=== PATIENT | female | born 1975 | race Caucasian/White ===

== ENCOUNTER → 2020-01-27 14:28 | Outpatient (CLI) | payer OTHER, SELFPAY ==
--- NOTE | ~2020-01-27 | MM_ITS ---
EXAMINATION: MM screening jessica BI w mary HISTORY: Screening TECHNIQUE: Craniocaudal and mediolateral oblique 3-D tomosynthesis images were obtained and synthetic 2-D images were generated. CAD analysis was submitted and interpreted. COMPARISON: Comparison to multiple prior studies sequentially, with oldest reviewed study dated 04/20. BREAST PARENCHYMAL COMPOSITION: The breasts are heterogenously dense, which may obscure small masses. FINDINGS: There is no evidence of suspicious mass, calcification, or architectural distortion to sugg est malignancy in either breast. There has been no suspicious interval change. IMPRESSION: 1. No mammographic evidence of malignancy. 2. Recommend routine screening mammography in one year. BI-RADS Category 1: Negative Reviewed, dictated and finalized at location A.
== END ==
PROVIDERS: Visit Provider Obstetrics & Gynecology
DX: Z12.31 Encounter for screening mammogram for malignant neoplasm of breast (principal)
CPT/HCPCS: 77063; 77067

== ENCOUNTER 2020-03-04 15:01 | Emergency (ER) | payer OTHER, SELFPAY ==
--- NOTE | ~2020-03-04 | XR_ITS ---
EXAMINATION: XR finger 4th LT min 2V INDICATION: Left fourth finger pain TECHNIQUE: Four views of the left fourth finger are obtained. COMPARISON: None available FINDINGS: There is an acute, traumatic, closed, oblique, intra-articular fracture at the dorsal base of the fifth fourth distal phalanx. The fracture involves greater than 50% of the articular surface. Soft tissue swelling surrounds the fracture. There is slight extension at the fourth interphalangeal joint and flexion at the distal interphalangeal joint. IMPRESSION: 1. Intra-articular fracture at the dorsal base of the fourth phalanx involving greater than 50% of th e articular surface. Orthopedic evaluation is recommended. Reviewed, dictated and finalized at location A. IMPRESSION: 1. Intra-articular fracture at the dorsal base of the fourth phalanx involving greater than 50% of the articular surface. Orthopedic evaluation is recommended .
[2020-03-04 15:11] VITALS: BP 159/109; PULSE 73; RESP 16; TEMP 36.8; O2SAT 100
--- NOTE | 2020-03-04 15:43 | ED.UPPEXIN ---
HPI - Extremity Injury (Upper) General Chief Complaint: Extremity Injury, Upper Stated Complaint: lt hand pinkie finger injury Time Seen by Provider: 03/04/20 15:20 Source: patient and RN notes reviewed Mode of arrival: ambulatory Limitations: no limitations History of Present Illness HPI narrative: 44 year old female who presents to [facility] with complaints of injury to her left 4th distal finger on the 26 of February. She states that she was playing volleyball with her daughter and was hit in the left ring finger by the volleyball. 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 She called Dr Mclean's offices and has an appointment with him on Saturday but he wants her to be seen and x-rayed at clinic today.Patient has been using ice intermittently and then she taped her finger together for a couple of days but no resolution in pain or swelling and is unable to move distal aspect of her 4th left finger. MD complaint: injury to: left and finger (ring finger) Onset (ago): day(s) (02/27/2020) Other Extremity Injury: Left: fingers ([id number] finger) Other injuries: none Handedness: right Place: home Severity: moderate Severity scale (1-10): 5 Relieving factors: cold therapy and rest Exacerbating factors: movement of extremity Context: direct blow Associated symptoms: denies other symptoms Treatments prior to arrival: cold therapy and other (kenia taped) Related Data Home Medications Medication Instructions Recorded Confirmed No Home Medications 03/04/20 03/04/20 Allergies Allergy/AdvReac Type Severity Reaction Status Date / Time No Known Allergies Allergy Mild Verified 03/04/20 15:16 Review of Systems Review of Systems: Narrative: CONSTITUTIONAL: Denies fever, chills, or sweats. EYES: Denies visual changes, redness, or discharge. ENT: Denies rhinorrhea, congestion, sore throat, or otalgia. CARDIOVASCULAR: Denies chest pain, palpitations, or edema. RESPIRATORY: Denies cough or dyspnea. GASTROINTESTINAL: Denies abdominal pain, nausea, vomiting, or diarrhea. GENITOURINARY: Denies dysuria or hematuria. SKIN: Denies rash or itching. MUSCULOSKELETAL: Denies back pain, positive for pain to distal left 4th finger DIP joint area or myalgia. NEUROLOGIC: Denies headache, numbness, or weakness. PSYCHIATRIC: Denies anxiety or depression. [facility] Past Medical History Medical History (Updated 03/05/20 @ 14:36 by Maria Antonia Carlton NP) induced hypertension Surgical History Surgical History (Updated 03/05/20 @ 14:37 by Maria Antonia Carlton NP) History of wisdom tooth extraction, class IV edentulism Family History Family History Grandparent Family history of Alzheimer's disease, Onset Age: 87 Family history unknown, Onset Age: 82 Family history of lung cancer, Onset Age: 74 Family history of congestive heart failure, Onset Age: 71 Mother Family history of malignant neoplasm of breast Father Family history of malignant neoplasm of urinary bladder Family history of malignant neoplasm of kidney Social History Social History (Updated 03/05/20 @ 14:36 by Maria Antonia Carlton NP) Smoking status: Never smoker Second hand tobacco smoke exposure: No Alcohol intake: current Living arrangements: with family Additional occupation/education comments: dentist Gender identity (if verbalized by the patient): Female Comments At time of signature, agree with nursing past medical, surgical, social and family history. There is no relevant family history pertinent to the presenting complaint Exam Narrative: Exam Narrative: GENERAL: Well-appearing, well-nourished, and in no acute distress. HEAD: Normocephalic, atraumatic. EYES: PERRLA and EOMI. ENT: Nares clear, no rhinorrhea or epistaxis. Mucous membranes moist. NECK: Supple. CHEST: Clear to a
[2020-03-04 16:01] VITALS: BP 151/105; PULSE 71
== END 2020-03-04 16:07 | disposition home or self-care (01) ==
PROVIDERS: Emergency Provider Registered Nurse
DX: S62.635A Displaced fracture of distal phalanx of left ring finger, initial encounter for closed fracture (principal); W21.06XA Struck by volleyball, initial encounter
CPT/HCPCS: 29130; 73140; 99214; G0463

== ENCOUNTER 2020-03-08 01:32 | Outpatient (CLI) | payer OTHER, SELFPAY ==
[2020-03-08 19:02] LABS: SARS-CoV-2 RNA PCR Negative
== END 2020-03-08 01:33 | disposition home or self-care (01) ==
LOC: ANHCOVIDDT 01:32
PROVIDERS: Visit Provider Plastic Surgery
DX: Z01.812 Encounter for preprocedural laboratory examination (principal); Z20.828 Contact with and (suspected) exposure to other viral communicable diseases
CPT/HCPCS: 87635; C9803; U0003

== ENCOUNTER 2020-03-10 01:09 | Day surgery (SDC) | payer OTHER, SELFPAY ==
[2020-03-07 12:56] VITALS: BMI 23.3
--- NOTE | ~2020-03-10 | XR_ITS ---
EXAMINATION: XR surgery orthopedic DATE: 03/10/2020 11:34 INDICATION: ORIF left ring finger fracture TECHNIQUE: 3 fluoroscopic spot images of the right fourth digit were obtained during procedure perfor med by Dr. Mclean. Radiologist was not present for the imaging or procedure. The amount of fluoroscopy time used during this procedure was 2.8 minutes. COMPARISON: 03/04/2020 FINDINGS: Interval reduction to near anatomic alignment of the previously distracted avulsion fractur e involving the dorsal half of the base of the left fourth distal phalanx. The fractures fixed with a dorsal to the palmar directed percutaneous wire as well as a longer axially directed wire extending from the tuft of the distal phalanx across the distal interphalangeal joint and through the middle ph alanx to near the base. The profiled joint spaces are normal. IMPRESSION: 1. Near-anatomic alignment post reduction and wire fixation of an intra-articular fracture at the delmar maryann base of the left fourth distal phalanx. See procedure note for further detail. Reviewed, dictated and finalized at location A. IMPRESSION: 1. Near-anatomic alignment post reduction and wire fixation of an intra-articul ar fracture at the dorsal base of the left fourth distal phalanx. See procedure note for further detail.
--- NOTE | 2020-03-10 07:09 | WPDHPUPDATE1 ---
History and Physical Update Update Date/Time: 03/10/20 07:09 History and Physical has been reviewed, including an updated exam of the patient. There are NO changes in the patient's condition. Risks, benefits, and alternatives have been discussed and questions answered. Patient agrees to proceed with procedure.
[2020-03-10 09:16] VITALS: BP 147/98; PULSE 70; RESP 18; TEMP 36.7; O2SAT 100
[2020-03-10] MEDS: LACTATED RINGERS 1,000 ML 30 ML IV CONT ×2 (09:30→11:17)
--- NOTE | 2020-03-10 09:38 | WPDANESEPPF ---
Anes - Initial Pre Proc Eval Procedure: Operation Date: 03/10/20 11:00 Proposed Procedures p Closed Reduction, Possible Open Internal Fixation Of Left Ring Finger - Mele Mclean MD Date/Time: 03/10/20 09:38 Surgeon: Mele Mclean MD Pre Op Diagnosis: Closed Displaced fx Left Ring Finger Distal Phal Patient Data Age: 44 Gender: F Height: 5 ft 5 in Weight: 63.5 kg Allergies Allergy/AdvReac Type Severity Reaction Status Date / Time No Known Allergies Allergy Mild Verified 03/07/20 12:56 Home Medications Medication Instructions Recorded Confirmed Type No Home Medications 03/04/20 03/07/20 History Patient hx anesthesia problems: none Family hx anesthesia problems: none PMFSH Past Medical History Medical History (Updated 03/05/20 @ 14:36 by Maria Antonia Carlton NP) induced hypertension Surgical History Surgical History (Updated 03/05/20 @ 14:37 by Maria Antonia Carlton NP) History of wisdom tooth extraction, class IV edentulism Family History Family History Grandparent Family history of Alzheimer's disease, Onset Age: 87 Family history unknown, Onset Age: 82 Family history of lung cancer, Onset Age: 74 Family history of congestive heart failure, Onset Age: 71 Mother Family history of malignant neoplasm of breast Father Family history of malignant neoplasm of urinary bladder Family history of malignant neoplasm of kidney Social History Social History (Updated 03/05/20 @ 14:36 by Maria Antonia Carlton NP) Smoking status: Never smoker Second hand tobacco smoke exposure: No Alcohol intake: current Drinks per week: 2 Additional occupation/education comments: dentist Gender identity (if verbalized by the patient): Female Spiritual care concerns: No Anes - Eval Final PreProcedure Day of Procedure 03/10/20 09:38 Patient weight: normal Heart: regular rate and rhythm Lungs: clear to auscultation Airway: Mallampati scale class II Neurological: alert and oriented Last oral intake: >/= 8 hours ASA classification: II Emergent: no Anesthetic plan: proceed Anesthesia type and monitoring: general GIVS and standard monitoring Informed Consent: The patient's anesthetic plan and its attendant risks and benefits were discussed with the patient/family/POA. Questions were solicited and answers provided to the satisfaction of the patient/family/POA.
[2020-03-10] MEDS: ceFAZolin 2 GM/D5W 50 ML 2 GM/50 ML BAG IVPB (09:47)
[2020-03-10] MEDS: LIDO 1%/EPINEPHRINE 1:100,000 20 ML VIAL INFILTRATE (10:19)
[2020-03-10] MEDS: BUPIVACAINE HCL 0.5% PF 30 ML VIAL INFILTRATE (11:09)
[2020-03-10 11:17] VITALS: BP 121/75; PULSE 85; RESP 18; O2SAT 97
[2020-03-10 11:45] VITALS: BP 119/76; PULSE 66
--- NOTE | 2020-03-10 11:53 | P.OPB_ITS ---
Procedure Note - Brief Procedure Note - Brief Date of procedure: 03/10/20 Pre-op diagnosis: Closed Displaced fx Left Ring Finger Distal Phal Post-op diagnosis: same Procedure performed: ORIF of displaced fracture of distal phalanx left ring finger. Implants: C-wire: 0.028 inch and 0.035. Anesthesia: MAC Surgeon: Mele Mclean MD Associate Professor Of Geology: Carrol Landeros Estimated blood loss (mL): 2 Tourniquet time (min): 45 Drains: No Packing: No Pathology: none sent Complications: No immediate complications Condition: critical Disposition: same day
[2020-03-10 12:00] VITALS: BP 125/87; PULSE 58
--- NOTE | 2020-03-10 14:12 | P.OP_ITS ---
Procedure Note - Detailed Date of procedure: 03/10/20 Pre-op diagnosis: Closed Displaced fx Left Ring Finger Distal Phal Post-op diagnosis: same Procedure performed: Open reduction and internal C-wire fixation of a displaced closed fracture of the left ring finger distal phalanx. Description of procedure: The patient's appropriate finger was marked in the holding area. She was taken to the operating room and placed supine on operating table and a time-out was held and confirmed. She was given sedation anesthesia and the digit was blocked with 1% lidocaine with epinephrine. The hand was prepped and draped in usual fashion. A tourniquet was rolled onto the finger. C-arm images were made. The Y-shaped dorsal incision was made over the distal interphalangeal joint. Skin flaps were very carefully elevated . The lesser fragment was noted to be fried the attached to the terminal tendon and appeared to be intact. The fracture site was confirmed with placement of a 25 gauge needle inserted into the gap and imaged. A 0.028 C wire was placed at the dorsal base of the fragment and inserted into the fragment. The distal phalanx was extended. A 0.035 in C wire was driven retrograde from the tip through a small incision down the length of the phalanx and across the distal interphalangeal joint to the base of the middle phalanx under C-arm guidance. The minor fracture fragment was then guided into the defect with the C-wire. The wire was driven through the base of the distal phalanx and cut short above the terminal tendon. The very satisfactory reduction and fixation was achieved. The pins were cut beneath the skin level and the skin closed with interrupted and running 5 0 nylon sutures. A small bandage with volar aluminum splint to the proximal interphalangeal joint was applied. The tournicots were removed ambika or to skin closure. Five milliliter of 0.5% Marcaine were injected as an intrathecal block. The patient had been given 2 g of Ancef preop. She was discharged home with instructions in wound care and follow-up. She has a prescription for hydrocodone number [id number] Surgeon: Mele Mclean MD
== END 2020-03-10 12:20 | disposition home or self-care (01) ==
PROVIDERS: PCP Family Medicine; Visit Provider Plastic Surgery
PROC: (CPT 26765; principal; 2020-03-10 11:00)
DX: S62.635A Displaced fracture of distal phalanx of left ring finger, initial encounter for closed fracture (principal); W21.06XA Struck by volleyball, initial encounter; Y93.68 Activity, volleyball (beach) (court)
CPT/HCPCS: 26765; A9270; C1713; J0690; J2250; J2704; J3010; J7120

== ENCOUNTER 2020-04-25 09:25 | Outpatient (NON) | payer OTHER, SELFPAY ==
[2020-04-25 18:53] LABS: SARS-CoV-2 RNA PCR Positive
== END 2020-04-25 09:26 ==
LOC: ANHCOVIDDT 09:27
PROVIDERS: Visit Provider Obstetrics & Gynecology
DX: U07.1 COVID-19 (principal)
CPT/HCPCS: 87635; C9803; U0003

== ENCOUNTER → 2021-07-11 15:37 | Outpatient (CLI) | payer OTHER, SELFPAY ==
--- NOTE | ~2021-07-11 | MM_ITS ---
EXAMINATION: MM screening jessica BI w mary HISTORY: Screening mammogram TECHNIQUE: Craniocaudal and mediolateral oblique 3-D tomosynthesis images were obtained and synthetic 2-D images were generated. CAD analysis was submitted and interpreted. COMPARISON: 01/27/2020, 05/03/2018, 11/27/2016 bilateral screening mammogram examinations BREAST PARENCHYMAL COMPOSITION: The breasts are heterogeneously dense, which may obscure small masses . FINDINGS: Stable circumscribed approximately 4.6 x 7.4 mm opacity in the posterior mid inner left giovani ast. There is no evidence of suspicious mass, calcification, or architectural distortion to suggest m alignancy in either breast. There has been no suspicious interval change. IMPRESSION: 1. No mammographic evidence of malignancy. 2. Recommend routine screening mammography in one year. BI-RADS Category 2: Benign finding(s). Reviewed, dictated and finalized at location A. INSPECTOR
== END ==
PROVIDERS: PCP Family Medicine; Visit Provider Obstetrics & Gynecology
DX: Z12.31 Encounter for screening mammogram for malignant neoplasm of breast (principal)
CPT/HCPCS: 77063; 77067

== ENCOUNTER → 2022-07-13 08:02 | Outpatient (CLI) | payer OTHER, SELFPAY ==
--- NOTE | ~2022-07-13 | MM_ITS ---
EXAMINATION: MM screening jessica BI w mary HISTORY: Screening mammogram TECHNIQUE: Craniocaudal and mediolateral oblique 3-D tomosynthesis images were obtained and synthetic 2-D images were generated. CAD analysis was submitted and interpreted. COMPARISON: July 11, 2021, January 27, 2020, May 03, 2018 bilateral screening mammogram exa minations BREAST PARENCHYMAL COMPOSITION: The breasts are heterogeneously dense, which may obscure small masses . FINDINGS: Question of possible focal architectural distortion/asymmetry in the posterior outer left b reast on CC projection. Diagnostic left mammogram is recommended, with ultrasound if required. Otherwise there is no evidence of suspicious mass, calcification, or architectural distortion to sugg est malignancy in either breast. There has been no other suspicious interval change. IMPRESSION: 1. Question of possible focal architectural distortion/asymmetry in posterior outer left breast on CC projection. 2. Diagnostic left mammogram is recommended, with ultrasound if required BI-RADS Category 0: Incomplete: Needs additional imaging evaluation. Reviewed, dictated and finalized at location A. DESK ASSISTANT IMPRESSION: 1. Question of possible focal architectural distortion/asymmetry in posterior o uter left breast on CC projection. 2. Diagnostic left mammogram is recommended, with ultrasound if required BI-RADS Category 0: Incomplete: Needs additional imaging evaluation.
== END ==
PROVIDERS: PCP Family Medicine; Visit Provider Obstetrics & Gynecology
DX: Z12.31 Encounter for screening mammogram for malignant neoplasm of breast (principal); R92.8 Other abnormal and inconclusive findings on diagnostic imaging of breast
CPT/HCPCS: 77063; 77067

== ENCOUNTER → 2022-08-07 14:11 | Outpatient (CLI) | payer OTHER, SELFPAY ==
--- NOTE | ~2022-08-07 | MMUS_ITS ---
EXAMINATION: MM diagnostic jessica LT w mary, US breast LT complete HISTORY: Follow-up possible architectural distortion of the left breast. TECHNIQUE: Additional 3-D tomosynthesis images of the left breast were performed and synthetic 2-D im ages were generated. CAD analysis was submitted and interpreted. High resolution complete left breast ultrasound was performed. COMPARISON: Comparison to multiple prior studies sequentially, with oldest reviewed study dated 04/20. BREAST PARENCHYMAL COMPOSITION: The breasts are heterogeneously dense, which may obscure small masses FINDINGS: MAMMOGRAPHIC FINDINGS: There are no suspicious masses, calcifications or architectural distortion in the left breast to sugg est malignancy. ULTRASOUND: Complete US of all 4 quadrants of the left breast and retroareolar region was reviewed. At 2:00, 5 cm from the nipple, there is a 6 mm cyst. At 3:00 near the areola there is a 4 mm cyst. At 6:00, 1 cm f rom the nipple there is a 2 mm cyst. No suspicious masses to suggest malignancy. IMPRESSION: 1. No evidence for malignancy in the left breast. Benign findings. 2. Routine yearly screening mammogram and regular clinical breast examination are recommended. BI-RADS Category 2: Benign finding(s). Reviewed, dictated and finalized at location A. IMPRESSION: 1. No evidence for malignancy in the left breast. Benign findings. 2. Routine yearly screening mammogram and regular clinical breast examination a re recommended. BI-RADS Category 2: Benign finding(s).
== END ==
PROVIDERS: PCP Family Medicine; Visit Provider Obstetrics & Gynecology
DX: R92.8 Other abnormal and inconclusive findings on diagnostic imaging of breast (principal)
CPT/HCPCS: 76641; 77061; 77065; G0279

== ENCOUNTER 2023-01-11 06:37 | Outpatient (RCR) | payer OTHER, SELFPAY ==
--- NOTE | 2022-12-28 10:53 | PC.NURSE ---
RABIES VACCINE AND GLOBULIN ORDERED BY HEALTH DEPARTMENT AFTER POSSIBLE BAT EXPOSURE IN [facility]. THERE WAS NO KNOWN BITE / SITE, RIG GIVEN IM.
== END 2023-03-28 23:59 | disposition home or self-care (01) ==
LOC: ANHVASCINF 06:37
PROVIDERS: PCP Family Medicine; Visit Provider Pediatrics
DX: Z29.14 Encounter for prophylactic rabies immune globulin (principal); Z20.3 Contact with and (suspected) exposure to rabies
CPT/HCPCS: 90471; 90675; 90375

== ENCOUNTER 2023-11-06 14:54 | Outpatient (CLI) | payer OTHER, SELFPAY ==
--- NOTE | ~2023-11-06 | MM_ITS ---
EXAMINATION: MM screening jessica BI w mary HISTORY: Screening TECHNIQUE: Craniocaudal and mediolateral oblique 3-D tomosynthesis images were obtained and synthetic 2-D images were generated. CAD analysis was submitted and interpreted. COMPARISON: Comparison to multiple prior studies sequentially, with oldest reviewed study dated 11/27 . BREAST PARENCHYMAL COMPOSITION: Dense: The breasts are heterogeneously dense, which may obscure small masses FINDINGS: There are developing nodular asymmetries in the outer aspect of the right breast on CC view . The left breast is stable without evidence for malignancy. IMPRESSION: 1. Developing nodular right breast asymmetries. 2. Additional mammographic views and possible breast ultrasound are recommended. BI-RADS Category 0: Incomplete: Needs additional imaging evaluation. Reviewed, dictated and finalized at location B. IMPRESSION: 1. Developing nodular right breast asymmetries. 2. Additional mammographic views and possible breast ultrasound are recommended . BI-RADS Category 0: Incomplete: Needs additional imaging evaluation.
== END 2023-11-06 14:55 ==
LOC: MICIMG 14:55
PROVIDERS: PCP Family Medicine; Visit Provider Obstetrics & Gynecology
DX: Z12.31 Encounter for screening mammogram for malignant neoplasm of breast (principal); N64.89 Other specified disorders of breast
CPT/HCPCS: 77063; 77067

== ENCOUNTER 2023-12-05 08:27 | Outpatient (CLI) | payer OTHER, SELFPAY ==
--- NOTE | ~2023-12-05 | MMUS_ITS ---
EXAMINATION: MM diagnostic jessica RT w mary, US breast RT limited HISTORY: Nodular asymmetry outer right breast TECHNIQUE: Additional 3-D tomosynthesis images of the right breast were performed and synthetic 2-D i mages were generated. CAD analysis was submitted and interpreted. High resolution limited right breas t ultrasound was performed. COMPARISON: 11/06/2023, 07/13/2022, 07/11/2021 BREAST PARENCHYMAL COMPOSITION:Dense: The breasts are heterogeneously dense, which may obscure small masses. FINDINGS: MAMMOGRAPHIC FINDINGS: Spot compression views demonstrate a suspected persistent 6 mm ovoid mass at the outer right breast. No architectural distortion or suspicious calcification. ULTRASOUND: Sonographic imaging of the outer right breast was performed. At the 8:00 position right breast, 5 cm from the nipple, there is a 0.6 x 0.3 x 0.6 cm hypoechoic wider than tall structure, possibly a cyst versus hypoechoic mass. At the 9 composition right breast, 5 cm from the nipple, there are 2 adjacent circumscribed wider than tall hypoechoic lesions, larger measuring 5 mm in diameter, smaller measuri ng 4 mm in diameter. At the 9:00 position right breast, 4 cm from the nipple, there is a 7 x 5 x 7 mm probable cyst with minimal septation. At the 10:00 position right breast, 5 cm from the nipple, ther e is a 4 mm round hypoechoic mass. IMPRESSION: Multiple subcentimeter hypoechoic and/or cystic lesions at the outer right breast, as detailed above . These are all probably benign in appearance. Six-month follow-up ultrasound recommended to assure s tability. BI-RADS category 3, probably benign findings. Reviewed, dictated and finalized at location M. IMPRESSION: Multiple subcentimeter hypoechoic and/or cystic lesions at the outer right giovani ast, as detailed above. These are all probably benign in appearance. Six-month follow-up ultrasound recommended to assure stability. BI-RADS category 3, probably benign findings.
== END 2023-12-05 08:28 ==
LOC: MICIMG 08:28
PROVIDERS: PCP Family Medicine; Visit Provider Obstetrics & Gynecology
DX: N64.89 Other specified disorders of breast (principal)
CPT/HCPCS: 76642; 77061; 77065; G0279

== ENCOUNTER 2024-04-28 15:21 | Outpatient (CLI) | payer OTHER, SELFPAY | END 2024-04-28 15:22 | disposition home or self-care (01) | PROVIDERS: PCP Family Medicine; Visit Provider Obstetrics & Gynecology | DX: Z80.3 Family history of malignant neoplasm of breast (principal) | CPT/HCPCS: 81162 ==

== ENCOUNTER 2024-05-05 13:28 | Outpatient (CLI) | payer OTHER, SELFPAY ==
--- NOTE | ~2024-05-05 | CT_ITS ---
EXAMINATION: CT sinus wo con DATE: 05/05/2024 13:40 INDICATION: Acute recurrent maxillary sinusitis TECHNIQUE: Computed tomography (CT) of the paranasal sinuses was performed without intravenous contra st. The dose-length product was 262.31 mGy-cm. Automated exposure control and iterative reconstructio n technique were employed. COMPARISON: None FINDINGS: There is no significant mucosal thickening or mucoperiosteal reaction no air-fluid levels. Rightward nasal septal deviation. Ostiomeatal units are patent. Mastoids are pneumatized. IMPRESSION: 1. No significant sinus disease. Reviewed, dictated and finalized at location B. TS ASSISTANT
== END 2024-05-05 13:29 | disposition home or self-care (01) ==
LOC: MICIMG 13:29
PROVIDERS: PCP Family Medicine; Visit Provider Otolaryngology
DX: J01.01 Acute recurrent maxillary sinusitis (principal)
CPT/HCPCS: 70486

== ENCOUNTER 2024-06-05 08:04 | Outpatient (CLI) | payer OTHER, SELFPAY ==
--- NOTE | ~2024-06-05 | US_ITS ---
US breast RT limited 06/05/2024 08:48 Indication: Follow-up right breast masses Procedure: Limited right breast ultrasound Comparison: 12/05/2023 Findings: At 8:00, 5 cm from the nipple there is a 5 mm cyst. At 9:00, 5 cm from the nipple there is an oval hypoechoic 5 mm mass without significant change compared with prior examination. There is par allel orientation, subtle posterior acoustic enhancement. At 9:00, 4 cm from the nipple there is a 4 mm cyst. Impression: 1: Probable benign right breast mass at 9:00, 5 cm from the nipple. BI-RADS CATEGORY 3-PROBABLY BENIGN FINDING RECOMMENDATION: Six-month follow-up bilateral mammogram and Limited right breast ultrasound recommend ed. Reviewed, dictated and finalized at location A. CH ADJUSTER Impression: 1: Probable benign right breast mass at 9:00, 5 cm from the nipple. BI-RADS CATEGORY 3-PROBABLY BENIGN FINDING RECOMMENDATION: Six-month follow-up bilateral mammogram and Limited right breas t ultrasound recommended.
== END 2024-06-05 08:05 | disposition home or self-care (01) ==
LOC: MICIMG 08:05
PROVIDERS: PCP Family Medicine; Visit Provider Obstetrics & Gynecology
DX: N60.01 Solitary cyst of right breast (principal)
CPT/HCPCS: 76642

== ENCOUNTER 2024-12-17 07:58 | Outpatient (CLI) | payer OTHER, SELFPAY ==
--- NOTE | ~2024-12-17 | MMUS_ITS ---
EXAMINATION: MM diagnostic jessica BI w mary, US breast BI complete HISTORY: Palpable breast lump TECHNIQUE: Additional 3-D tomosynthesis images of the breasts were performed and synthetic 2-D images were generated. CAD analysis was submitted and interpreted. High resolution bilateral complete breas t ultrasound was performed. COMPARISON: Comparison to multiple prior studies sequentially, with oldest reviewed study dated 01/2020. BREAST PARENCHYMAL COMPOSITION: Dense: The breasts are heterogeneously dense, which may obscure small masses FINDINGS: MAMMOGRAPHIC FINDINGS: There is a new mass in the lower inner quadrant of the right breast, anterior third. The left breast is stable without suspicious new mass, calcification or architectural distortion. ULTRASOUND: Complete US of all 4 quadrants of the breast/s and retroareolar region was reviewed. Right breast: At 5:00 near the nipple there is an oval solid hypoechoic circumscribed parallel orient ed mass without internal vascularity or posterior features measuring 8 mm. At 8:00, 4 cm from the nip ple there is a 7 mm cyst. At 9:00, 4 cm from the nipple there is a 6 mm cyst. Left breast: At 11:00, near the nipple there is a cluster of microcysts measuring 5 mm. No suspicious sonographic abnormalities in the left breast to suggest malignancy. IMPRESSION: 1. New right breast mass at 5:00 near the nipple measuring 8 mm. 2. Ultrasound-guided right breast biopsy recommended. BI-RADS category 4, suspicious findings. Reviewed, dictated and finalized at location B. IMPRESSION: 1. New right breast mass at 5:00 near the nipple measuring 8 mm. 2. Ultrasound-guided right breast biopsy recommended. BI-RADS category 4, suspicious findings.
== END 2024-12-17 07:59 | disposition home or self-care (01) ==
PROVIDERS: PCP Family Medicine; Visit Provider Obstetrics & Gynecology
DX: N63.10 Unspecified lump in the right breast, unspecified quadrant (principal); R92.8 Other abnormal and inconclusive findings on diagnostic imaging of breast
CPT/HCPCS: 76641; 77062; 77066; G0279